=== PATIENT | female | born 1955 | race Caucasian/White ===

== ENCOUNTER → 2019-08-24 12:29 | Outpatient (CLI) | payer BC, SELFPAY ==
--- NOTE | ~2019-08-24 | MM_ITS ---
EXAMINATION: MM screening vivian BI w moisés HISTORY: Screening mammogram TECHNIQUE: Craniocaudal and mediolateral oblique 3-D tomosynthesis images were obtained and synthetic 2-D images were generated. CAD analysis was submitted and interpreted. COMPARISON: Comparison to multiple prior studies sequentially, with oldest reviewed study dated 12/05. BREAST PARENCHYMAL COMPOSITION: The breasts are heterogeneously dense, which may obscure small masses . FINDINGS: There is no evidence of suspicious mass, calcification, or architectural distortion to sugg est malignancy in either breast. There has been no suspicious interval change. IMPRESSION: 1. No mammographic evidence of malignancy. 2. Recommend routine screening mammography in one year. BI-RADS Category 1: Negative Reviewed, dictated and finalized at location A.
--- NOTE | ~2019-08-24 | DEXA_ITS ---
Bone Density Report Name: Deana Kaplan Age: 63 Sex: Female Ethnicity: White Date of : 1955 Indication: osteopenia; height loss; postmenopausal Referring Provider: Carrie, Keyana Flowers Study: Bone densitometry was performed. Exam Date: August 24, 2019 Accession number: [id number] Bone Density: Region BMD T-score Z-score Classification AP Spine (L1-L4) 0.817 -2.1 -0.4 Osteopenia Femoral Neck (Left) 0.624 -2.0 -0.6 Osteopenia Total Hip (Left) 0.815 -1.0 0.1 Normal Femoral Neck (Right) 0.622 -2.0 -0.6 Osteopenia Total Hip (Right) 0.793 -1.2 -0.1 Osteopenia Total Hip Mean 0.804 -1.1 0.0 Osteopenia World Health Organization criteria for BMD impression classify patients as: Normal (T-score at or above -1.0), Osteopenia (T-score between -1.0 and -2.5), or Osteoporosis (T-score at or below -2.5). 10-year Fracture Risk(1): Major Osteoporotic Fracture 10% Hip Fracture 1.5% Reported Risk Factors: [place] (), Neck BMD=0.622, BMI=23.6 (1) FRAX(R) Version 3.08. Fracture probability calculated for an untreated patient. Fracture probability may be lower if the patient has received treatment. Previous Exams: Region Exam Age BMD T-score BMD Change BMD Change Date g/cm2 vs Baseline vs Previous AP Spine(L1-L4) 08/24/2019 63 0.817 -2.1 -0.035* -0.042* 06/22/2015 59 0.859 -1.7 0.007 0.012 10/28/2012 56 0.847 -1.8 -0.005 0.011 06/07/2009 53 0.836 -1.9 -0.016 0.029* 04/06/2008 52 0.807 -2.2 -0.045* -0.045* 01/25/2005 49 0.852 -1.8 Total Hip(Left) 08/24/2019 63 0.815 -1.0 -0.035* 0.029* 06/22/2015 59 0.786 -1.3 -0.063* 0.075* 10/28/2012 56 0.711 -1.9 -0.139* -0.011 06/07/2009 53 0.722 -1.8 -0.127* 0.026 04/06/2008 52 0.696 -2.0 -0.154* -0.154* 01/25/2005 49 0.850 -0.8 Total Hip(Right) 08/24/2019 63 0.793 -1.2 -0.021 -0.024 06/22/2015 59 0.817 -1.0 0.003 0.087* 10/28/2012 56 0.730 -1.7 -0.084* 0.009 06/07/2009 53 0.721 -1.8 -0.093* 0.013 04/06/2008 52 0.708 -1.9 -0.106* -0.106* 01/25/2005 49 0.814 -1.0 *Denotes significance at 95% confidence level, LSC for AP Spine = 0.022 g/cm2, LSC for Total Hip = 0.027 g/cm2 Clinical Information Provided by Patient:
== END ==
PROVIDERS: Visit Provider Nurse Practitioner Obstetrics & Gynecology
DX: Z12.31 Encounter for screening mammogram for malignant neoplasm of breast (principal); Z78.0 Asymptomatic menopausal state; M85.88 Other specified disorders of bone density and structure, other site; M85.852 Other specified disorders of bone density and structure, left thigh; M85.851 Other specified disorders of bone density and structure, right thigh
CPT/HCPCS: 77063; 77067; 77080